=== PATIENT | female | born 1965 | race Caucasian/White ===

== ENCOUNTER 2023-03-05 06:42 | Day surgery (SDC) | payer OTHER ==
[~2023-03-05] VITALS: Ht 154.9 cm; Wt 75.9 kg
[2023-03-05] MEDS ORDERED: SODIUM CHLORIDE 0.9% 1,000 ML ONE (07:19)
[2023-03-05] MEDS ORDERED: OMEP20 PO (07:37)
[2023-03-05] MEDS ORDERED: MONT-35 PO (07:37)
[2023-03-05] MEDS ORDERED: ATOR40TA28 PO (07:37)
[2023-03-05] MEDS ORDERED: TRAZ-252 PO (07:37)
[2023-03-05] MEDS ORDERED: LISI-893 PO (07:37)
[2023-03-05] MEDS ORDERED: FentaNYL CITRATE PF 100 MCG/2 ML VIAL ONE (07:56)
[2023-03-05] MEDS ORDERED: MIDAZOLAM HCL 2 MG/2 ML VIAL ONE (07:56)
[2023-03-05] MEDS ORDERED: SODIUM CHLORIDE 0.9% 1,000 ML IV ONE (09:00)
[2023-03-05] MEDS ORDERED: MethylPREDNISolone SOD SUCC 125 MG/2 ML VIAL IVP ONE (09:00)
[2023-03-05] MEDS ORDERED: MethylPREDNISolone SOD SUCC 125 MG/2 ML VIAL ONE (09:03)
[2023-03-05 09:05] VITALS: PULSE 57; RESP 12; O2SAT 100
[2023-03-05] MEDS ORDERED: LIDOCAINE 2% 11 ML JELLY ONE (16:40)
[2023-03-05] MEDS ORDERED: BENZOCAINE 20% 50 MCG/SPRAY 57 GM ONE (16:40)
[2023-03-05] MEDS ORDERED: LIDOCAINE 4% 50 ML SOLUTION ONE (16:40)
[2023-03-05] MEDS ORDERED: ALBUTEROL SULFATE 2.5 MG/0.5 ML NEB SOLUTION NEB ONE (16:40)
== END 2023-03-05 12:45 | disposition home or self-care (01) ==
LOC: SURGERY 06:42
PROVIDERS: ATTEND Internal Medicine Critical Care Medicine
DX: J38.4 Edema of larynx (principal); B37.0 Candidal stomatitis; I10 Essential (primary) hypertension; Z79.899 Other long term (current) drug therapy
CPT/HCPCS: 31623; 87206; 87101; 87220; 87070; 31624; 94640; 71045; 87015; J3010; J2250; J2930; Q9967; J7030; 88108; 88305; J7613; Z7610